=== PATIENT | male | born 1970 ===

== ENCOUNTER 2025-01-04 19:34 | Emergency (ER) | payer SELFPAY ==
[2025-01-04 19:36] VITALS: BP 165/115; PULSE 101; RESP 18; TEMP 36.6; O2SAT 100
--- NOTE | 2025-01-04 20:40 | PC.NURSE ---
2033 Patient comes to desk to state I am leaving, I don't want to wait. Patient was informed of risks of leaving before being seen by a provider adn benefits of staying for evaluation. Patient verbalized understanding and ambulated out of the ED with a steady gait with belongings in hand. Patient marked as left without being seen, triaged.
== END 2025-01-04 20:52 | disposition left against medical advice (07) ==
LOC: ANHED 20:50
DX: L98.9 Disorder of the skin and subcutaneous tissue, unspecified (principal)
CPT/HCPCS: 99199